=== PATIENT | female | born 1960 | race Caucasian/White ===

== ENCOUNTER 2018-01-20 08:33 | Emergency (ER) | payer BC ==
[~2018-01-20] VITALS: Ht 162.6 cm; Wt 86.4 kg
[2018-01-20] MEDS ORDERED: LEXAPRO10 MG PO (09:27)
[2018-01-20] MEDS ORDERED: ALPRAZOLAM2 M1 PO (09:27)
[2018-01-20] MEDS ORDERED: CLONAZEPAM1 MG PO (09:28)
[2018-01-20 10:06] LABS: HEMATOCRIT 41.7 % (37.0-47.0); IMMATURE GRANULOCYTES 0.7 % (0.0-5.0); MEAN CORPUSCULAR HGB 32.6 pG CALC (26.0-32.0); MEAN CORPUSCULAR HGB CONC 33.6 g/L CALC (32.0-36.0); NEUT# 4.78 thou/uL (2.00-7.15); RED BLOOD COUNT 4.3 mill/uL (4.20-5.60)
[2018-01-20 10:32] LABS: ANION GAP 16 (6-22 (CALC)); BUN 10 mg/dL (7-17); BUN/CREATININE RATIO 15 (12-20 (CALC)); CARBON DIOXIDE 28 mmol/l (22-30); CHLORIDE 104 mmol/l (95-108); CREATININE 0.7 mg/dL (0.5-1.0); GFR > 60 ML/MIN (>=60 (CALC)); GFR FOR AFR.AMER. > 60 ML/MIN (>=60 (CALC)); POTASSIUM 4.7 mmol/l (3.5-5.1); SODIUM 143 mmol/l (137-146)
[2018-01-20] MEDS ORDERED: AMPHETAMINE PO (10:44)
[2018-01-20] MEDS ORDERED: DEX PO (10:44)
[2018-01-20] MEDS ORDERED: BACTRIM DS1 TAB PO (11:46)
[2018-01-20] MEDS ORDERED: OFLOXACIN0.3 % OD (11:46)
[2018-01-20] MEDS ORDERED: CEPHALEXIN500 M1 PO (11:46)
[2018-01-20 12:00] VITALS: BP 141/89
== END 2018-01-20 12:00 | disposition home or self-care (01) | DRG 125 ==
LOC: ED 08:33
PROVIDERS: Family Medicine
DX: H10.31 Unspecified acute conjunctivitis, right eye (principal); F41.9 Anxiety disorder, unspecified; F32.9 Major depressive disorder, single episode, unspecified; F17.210 Nicotine dependence, cigarettes, uncomplicated
CPT/HCPCS: Q9967